=== PATIENT | male | born 1980 | race African-American/Black ===

== ENCOUNTER 2020-10-29 00:01 | Emergency (ER) | payer OTHER ==
[~2020-10-29] VITALS: Ht 170.2 cm; Wt 95.4 kg
[2020-10-29] MEDS ORDERED: MIRT-34 PO (00:10)
[2020-10-29] MEDS ORDERED: BUSP5TAB PO (00:10)
--- NOTE | 2020-10-29 00:16 | PHYS DOC ---
General Adult EDM: Chief Complaint: FEVER HPI: HPI: Patient is a 40 year old male who presents with here by EMS from [facility]. He is a 2 days of nasal congestion, lessened sense of smell, sore throat and chills. He states he has not been taking anything for his symptoms. 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 He has a history of smoking, anxiety, meth abuse. Review of Systems: Review of Systems: Constitutional: Denies fever. +chills. [] Eyes: Denies change in visual acuity. [] HENT: + nasal congestion or +sore throat, + lessened sense of smell. [] Respiratory: + cough or denies shortness of breath. [] Cardiovascular: Denies chest pain or edema. [] GI: Denies abdominal pain, nausea, vomiting, bloody stools or diarrhea. [] : Denies dysuria. [] Musculoskeletal: Denies back pain or joint pain. [] Integument: Denies rash. [] Neurologic: Denies headache, focal weakness or sensory changes. [] Endocrine: Denies polyuria or polydipsia. [] Lymphatic: Denies swollen glands. [] Psychiatric: Denies depression or anxiety. [] Heart Score: Risk Factors: Risk Factors: DM, Current or recent (<one month) smoker, HTN, HLP, family history of CAD, obesity. Risk Scores: Score 0 - 3: 2.5% MACE over next 6 weeks - Discharge Home Score 4 - 6: 20.3% MACE over next 6 weeks - Admit for Clinical Observation Score 7 - 10: 72.7% MACE over next 6 weeks - Early Invasive Strategies Physical Exam: PE: Constitutional: Well developed, well nourished, no acute distress, non-toxic ap pearance. [] HENT: Normocephalic, atraumatic, bilateral external ears normal, oropharynx moist, no oral exudates, nose normal. Bilateral tonsils 1+ swollen. No exudates seen. Nasal congestion. [] Eyes: PERRLA, EOMI, conjunctiva normal, no discharge. [] Neck: Normal range of motion, no tenderness, supple, no stridor. [] Cardiovascular:Heart rate regular rhythm, no murmur [] Lungs & Thorax: Bilateral breath sounds clear to auscultation [] Abdomen: Bowel sounds normal, soft, no tenderness, no masses, no pulsatile masses. [] Skin: Warm, dry, no erythema, no rash. [] Back: No tenderness, no CVA tenderness. [] Extremities: No tenderness, no cyanosis, no clubbing, ROM intact, no edema. [] Neurologic: Alert and oriented X 3, normal motor function, normal sensory function, no focal deficits noted. [] Psychologic: Affect normal, judgement normal, mood normal. [] EKG: EKG: [] Radiology/Procedures: Radiology/Procedures: [] Impression: [facility] [address] [place] [address] IMAGING REPORT Signed PATIENT: BERENICE FAUSTIN ACCOUNT: [id number] : 1980 LOCATION: ER AGE: 40 SEX: M EXAM STATUS: REG ER ORD. PHYSICIAN: STEFANO MCLEOD APRN REASON: COUGH PROCEDURE: PORTABLE CHEST 1V INDICATION: Reason: COUGH / Spl. Instructions: / History: COMPARISON: None. FINDINGS: Single view of chest obtained. No focal airspace consolidation. Cardiomediastinal contour unremarkable. No acute osseous abnormality. IMPRESSION: * No focal airspace consolidation or edema. Electronically signed by: David Ibrahim MD (10/29/2020 12:38 AM) [id number] DICTATED and SIGNED BY: DAVID IBRAHIM MD DATE: 10/29/20 [id number] 0 Course & Med Decision Making: Course & Med Decision Making Pertinent Labs and Imaging studies reviewed. (See chart for details) COVID-19 CRITERIA: The patient was evaluated during the global COVID-19 pandemic, and that diagnosis was suspected/considered upon their initial presentation. Their evaluation, treatment and testing was consistent with current guidelines for patients who present with complaints or symptoms that may be related to COVID-19. See HPI. Alert and oriented x4. Ambulatory with a steady gait. Speaks in full complete sentences. Skin pink warm and dry. Afebrile. Lungs are clear to auscultation all lobes. Tonsils are 1+ swollen and reddened but there is no exudates. Nasal congestion present. No sinus tenderness with palpation. [] Dragon Disclaimer: [place] Disclaimer: This electronic medical record was generated, in whole or in part, using a voice recognition dictation system. COVID-19 Patient Risks: Age 65 or older: No Sign of co-morbidity: Yes Exp to person + for COVID: No Exp to PUI: No Travel from affected area: No Lower respiratory symptoms: Yes Fever: No Other: Yes (lessened smell) PPE Use: Full PPE with N95 mask or PAPR: Yes Departure Departure Impression: Primary Impression: Sore throat Additional Impressions: Nasal congestion Smell, impaired Cough Disposition: 01 DC HOME SELF CARE/HOMELESS Condition: STABLE Patient Instructions: Cough, Adult, Sore Throat, [id number] Additional Instructions: Follow-up with your primary care provider. Take medication as prescribed and with food. Drink plenty of fluids. Take Tylenol or ibuprofen for any pain or fever. If you begin having severe shortness of breath or chest pain return to emergency room. You have been tested for or diagnosed with COVID-19. It is an infection caused by a new type of coronavirus. COVID-19 will cause cold-like or mild flu symptoms in most. It can cause more severe symptoms like problems breathing in some. There is no treatment for COVID-19. The body will clear the infection over time. Self-care will help to ease discomfort. Steps to Take: Self-Care Rest as needed. Healthy habits may help you feel better. Steps include: Choose healthy foods including fruits and vegetables. Drink water throughout the day. Get plenty of sleep each night. If you smoke, try to quit. It may ease breathing. Avoid alcohol. Keep Others Healthy The virus can spread to others. Droplets are released every time you sneeze or cough. The droplets can get into the mouth, nose, or eyes of people near you and lead to infection. To lower the chances of spreading COVID-19 to others: Stay at home until your doctor has said it is safe to leave. If you tested positive this will mean staying isolated until both of the following are true: At least 7 days have passed since the start of illness. You are free of fever for at least 72 hours without the use of medicine. During this time: - Avoid public areas, events, or transportation. Do not return to work or school until your doctor has said it is safe to do so. - Call ahead if you need to go to a medical center. Let them know you may have COVID-19. It will help them guide you where to go. They may also ask you to wear a facemask when you come to the office. - If you call for emergency medical services, let them know you may have COVID- 19. While at home: - Try to avoid close contact with others. Stay about 6 feet away. - If possible, spend most of your time in a separate room from others. - Use a face mask if you will be in close contact with others such as sharing a room or vehicle. - Have someone wipe down common surfaces in the home. Use household tankman every day on areas like doorknobs, counters, or sinks. - Cough or sneeze into a tissue. Throw the tissue away right after use. If a tissue is not available, cough or sneeze into your elbow. - Wash your hands often. Wash them after sneezing or coughing. Use soap and water and wash for at least 20 seconds. Alcohol based hand room cleaner can be used if soap and water is not available. - Do not prepare food for others. Avoid sharing personal items like forks, spoons, or toothbrushes. - Avoid close contact with pets while you are sick. There is no evidence of the virus passing to pets. This is a safety step until more is known about this virus. Isolation can be frustrating. Social interaction can help. Keep in touch with friends and family through phone and tech options. You can still interact with others in your home, just keep a safe distance of about 6 feet. Follow-up: Your doctors office will check in with you to see if there are any changes in your health. You may be asked to keep track of symptoms to share with them. They will also let you know when you are clear to be in public again. Problems to Look Out For: Contact your doctor if your recovery is not going as you expect. Get emergency care if you have problems such as: - Trouble breathing - Nonstop chest pain or pressure - Changes in awareness, confusion, or problems waking - Lips or face have bluish color - Worsening of symptoms If you think you have an emergency, call for emergency medical services right away. As taken from [facility] Cetirizine Hcl (ZYRTEC) 10 Mg Tablet 1 TAB PO DAILY, #14 TAB 2 Refills Prov: STEFANO MCLEOD APRN 10/29/20 Ibuprofen (IBUPROFEN) 600 Mg Tablet 600 MG PO PRN Q6HRS PRN for INFLAMMATION, #30 TAB Prov: STEFANO MCLEOD COFFEE WEIGHER 10/29/20 Azithromycin (AZITHROMYCIN TABLET) 250 Mg Tablet 1 PKG PO UD for 5 Days, #6 TAB 0 Refills 2 the first day followed by 1 for days 2-5 Prov: STEFANO MCLEOD APRN 10/29/20 Methylprednisolone (MEDROL) 4 Mg Tab.ds.pk 1 PKG PO UD, #1 PKG Prov: STEFANO MCLEOD COFFEE WEIGHER 10/29/20 Albuterol Sulfate (PROAIR HFA INHALER) 8.5 Gm Hfa.aer.ad 1 PUFF INH PRN Q6HRS PRN for SHORTNESS OF BREATH, #1 INHALER 0 Refills Prov: STEFANO MCLEOD APRN 10/29/20 STEFANO MCLEOD APRN Oct 29, 2020 00:16
[2020-10-29] MEDS ORDERED: DEXAMETHASONE 4 MG TABLET PO ONE (00:30)
[2020-10-29] MEDS ORDERED: CETIRIZINE HCL 10 MG TABLET. PO ONE (00:30)
--- NOTE | 2020-10-29 00:40 | RAD ---
INDICATION: Reason: COUGH / Spl. Instructions: / History: COMPARISON: None. FINDINGS: Single view of chest obtained. No focal airspace consolidation. Cardiomediastinal contour unremarkable. No acute osseous abnormality. IMPRESSION: * No focal airspace consolidation or edema. Electronically signed by: Wiley Ibrahim MD (10/29/2020 12:38 AM) [id number]
[2020-10-29] MEDS ORDERED: AZIT250T6 PO (00:47)
[2020-10-29] MEDS ORDERED: IBUP-1007 PO (00:47)
[2020-10-29] MEDS ORDERED: METH4TAB2 PO (00:47)
[2020-10-29] MEDS ORDERED: ALBU2.5V8 INH (00:47)
[2020-10-29] MEDS ORDERED: CETI10TA74 PO (00:47)
[2020-10-29 02:06] VITALS: BP 145/86
--- NOTE | 2020-10-30 09:47 | NUR ---
IP: Informed pt of negative COVID results. Pt verbalized understanding.
== END 2020-10-29 02:53 | disposition home or self-care (01) ==
LOC: ER 00:01
DX: Z20.828 Contact with and (suspected) exposure to other viral communicable diseases (principal); J02.9 Acute pharyngitis, unspecified; R09.81 Nasal congestion; R05 Cough; F41.9 Anxiety disorder, unspecified; Z87.891 Personal history of nicotine dependence
CPT/HCPCS: 71045; 87070; 87880; 99285; C9803; U0003

== ENCOUNTER 2021-07-06 13:51 | Emergency (ER) | payer OTHER ==
[~2021-07-06] VITALS: Ht 170.2 cm; Wt 90.9 kg
[~2021-07-06 13:51] MED LIST: ALBU2.5V8 INH; AZIT250T6 PO; BUSP5TAB PO; CETI10TA74 PO; IBUP-1007 PO; METH4TAB2 PO; MIRT-34 PO
[2021-07-06] MEDS ORDERED: IV NORMAL SALINE 1000ML BAG 1,000 ML IV ONE (14:15)
--- NOTE | 2021-07-06 14:20 | PHYS DOC ---
Past Medical History Past Medical History: Anxiety, Other Additional Past Medical Histor: "HERNIA",INSOMNIA,COVID-19 Past Surgical History: Other Additional Past Surgical Histo: L TESTICLE Smoking Status: Current Every Day Smoker Alcohol Use: None General Adult EDM: Chief Complaint: GROIN PAIN HPI: HPI: 40-year-old -[place] male past medical history anxiety, insomnia and seizure disorder, presents the [facility] from the [facility] with complaints of left inguinal pain worse with lifting weights and squats that started after working out today. Review of Systems: Review of Systems: Constitutional: Denies fever or chills. [] Eyes: Denies change in visual acuity. [] HENT: Denies nasal congestion or sore throat. [] Respiratory: Denies cough or shortness of breath. [] Cardiovascular: Denies chest pain or edema. [] GI: Denies nausea, vomiting, bloody stools or diarrhea. [] : Denies dysuria, hematuria or urethral discharge Musculoskeletal: Denies back pain or joint pain. [] Integument: Denies rash or diaphoresis Neurologic: Denies headache, focal weakness or sensory changes. [] Endocrine: Denies polyuria or polydipsia. [] Lymphatic: Denies swollen glands. [] Psychiatric: Denies depression or anxiety. [] Heart Score: C/O Chest Pain: No Risk Factors: Risk Factors: DM, Current or recent (<one month) smoker, HTN, HLP, family history of CAD, obesity. Risk Scores: Score 0 - 3: 2.5% MACE over next 6 weeks - Discharge Home Score 4 - 6: 20.3% MACE over next 6 weeks - Admit for Clinical Observation Score 7 - 10: 72.7% MACE over next 6 weeks - Early Invasive Strategies Current Medications: Current Medications Medications (Trade) Dose Ordered Sig/Yissel Start Time Stop Time Status Last Admin Dose Admin Sodium Chloride 1,000 ml @ 1,000 mls/hr 1X ONCE 07/06/21 14:15 07/06/21 15:14 UNV Allergies: Allergies: Allergies Coded Allergies Type Severity Reaction Last Updated Verified Penicillins Allergy Unknown UNKNOWN 07/06/21 Yes Physical Exam: PE: Constitutional: Well developed, well nourished, no acute distress, non-toxic appearance. HENT: Normocephalic, atraumatic, Eyes: EOMI, conjunctiva normal, no discharge. Neck: Normal range of motion, supple, Cardiovascular: S1/2 present, regular rhythm Lungs & Thorax: Speaking in full sentences, bilateral equal chest rise, no tachypnea or increased work of breathing Abdomen: soft, no tenderness, Skin: Warm, dry, no erythema, no rash. [] Back: No tenderness, no CVA tenderness. [] Extremities: No tenderness, no cyanosis, no lower extremity edema Neurologic: Alert and oriented X 3, normal motor function, normal sensory function, no focal deficits noted. [] Psychologic: Affect normal, judgement normal, mood normal. [] : Chaperoned by RN, circumcised, left inguinal region fullness/reduced with no significant discomfort, no testicular/penile tenderness, no rash or ulcers, no urethral discharge, no groove sign Current Patient Data: Vital Signs: Vital Signs Date Time Temp Pulse Resp B/P (MAP) Pulse Ox O2 Delivery O2 Flow Rate FiO2 07/06/21 13:51 98.3 86 16 124/79 (94) 95 Room Air 98.3 EKG: EKG: [] Radiology/Procedures: Radiology/Procedures: []IMAGING REPORT Signed PATIENT: BERENICE FAUSTIN ACCOUNT: [id number] : 1980 LOCATION: ER AGE: 40 SEX: M EXAM STATUS: REG ER ORD. PHYSICIAN: ROLLY WOOD DO REASON: left inguinal pain, suspect hernia PROCEDURE: CT ABD PELV W/ORAL&IV CONTRAST Examination: CT of the abdomen pelvis with IV contrast HISTORY: History of left inguinal pain COMPARISON: None available Technique: Axial CT images of the pelvis are performed with oral and IV contrast. Coronal and sagittal deformities are performed Exposure: One or more of the following individualized dose reduction techniques were utilized for this examination: 1. Automated exposure control 2. Adjustment of the mA and/or kV according to patient size 3. Use of iterative reconstruction technique FINDINGS: The bibasilar lungs are clear. No evidence of free air identified in the abdomen. The liver, spleen, adrenals grossly appears unremarkable. The catheter is mildly distended. The stomach is mildly distended. Small hiatal hernia is identified. The visualized pancreas grossly appears unremarkable. Small bowel is nondilated. Feces and gas in the colon. Urinary bladder is mildly distended. There is a small fat-containing left inguinal identified. Bilateral kidneys enhance symmetrically. Tiny cystic structures identified within bilateral kidneys with the largest measuring 1.4 cm the right kidney. No evidence of lytic bony destructive lesion. IMPRESSION: 1. Small fat-containing left inguinal hernia. 2. Small hiatal hernia. 3. Tiny cystic structures identified within bilateral kidneys with the largest measuring 1.4 cm the right kidney. Follow-up nonemergent ultrasound kidneys can be considered. Electronically signed by: Deven Neville MD (07/06/2021 4:14 PM) [id number] DICTATED and SIGNED BY: DEVEN NEVILLE MD DATE: 07/06/21 [id number] 0 Course & Med Decision Making: Course & Med Decision Making Pertinent Labs and Imaging studies reviewed. (See chart for details) Concern for reducible left inguinal hernia no medically stable male. Basic labs unremarkable. Urinalysis with no signs of infection. Will discharge home with strict ED return precautions were given for inability to reduce hernia, severe pain, nausea, vomiting or fever. Encouraged urgent outpatient follow-up with PMD and surgery for definitive management. Life-threatening processes were considered but are low suspicion at this time, given history, physical exam and ED workup. Pt was educated on all prescription medications and adverse effects. All patient's questions were answered and pt was stable at time of discharge. Life/limb-threatening differential includes but is not limited to, aortic dissection, aortic aneurysm, acute coronary syndrome, surgical abdomen (appendicitis, cholecystitis, ischemic bowel, strangulated hernia, etc), bowel obstruction or volvulus, bladder outlet obstruction, gastrointestinal bleeding, inflammatory bowel disease, peptic ulcer disease, ACS/CAD, sepsis, diverticular disease, ureterolithiasis, nephrolithiasis, ovarian or testicular torsion, ectopic , vaginal hemorrhage, or genitourinary infection. I have spoken with the patient and/or caregivers. I explained the patient's condition, diagnoses and treatment plan based on the information available to me at this time. I have answered the patient and/or caregiver's questions and addressed any concerns. The patient and/or caregivers have a good understanding of patient's diagnosis, condition and treatment plan as can be expected at this point. Vital signs have been stable. Patient's condition is stable and appropriate for discharge from the emergency department. Patient will pursue further outpatient evaluation with primary care physician or other designated or consulting physician as outlined in the discharge instructions. The patient and/or caregivers are agreeable to this plan of care and follow-up instructions have been explained in detail. The patient and/or caregivers have received these instructions in written form and have expressed an understanding of the discharge instructions. The patient and/or caregivers are aware that any significant change of condition or worsening of symptoms should prompt immediate return to this or the closest emergency department or call to [facility] Disclaimer: [place] Disclaimer: This electronic medical record was generated, in whole or in part, using a voice recognition dictation system. Departure Departure Impression: Primary Impression: Left inguinal hernia Disposition: HOME / SELF CARE / HOMELESS Condition: STABLE Referrals: NO PCP (PCP) Follow-up with your primary care physician in 24 to 48 hours OR FOLLOW UP WITH FAMILY MEDICINE: [address] [facility] [facility] [address] [place] [address] Patient Instructions: Hernia Additional Instructions: FOLLOW UP WITH SURGERY: FOR DEFINITIVE MANAGEMENT of left-sided fat-containing inguinal hernia [facility] General Surgery Address: [address] [facility] [facility] [address] [place] [address] EMERGENCY DEPARTMENT GENERAL DISCHARGE INSTRUCTIONS Thank you for coming to [facility] Emergency Department (ED) today and trusting us with you care. We trust that you had a positive experience in our Emergency Department. If you wish to speak to the department management, you may call the Director at [phone]. YOUR FOLLOW UP INSTRUCTIONS ARE FOLLOWS: 1. Do you have a private Doctor? If you do not have a private doctor, please ask for a resource list of physicians or clinics that may be able to assist you with follow up care. 2. The Emergency Physicain has interpreted your x-rays. The X-Ray specialist will also review them. If there is a change in the findings, you will be notified in 48 hours when at all possible. 3. A lab test or culture has been done, your results will be reviewed and you will be notified if you need a change in treatment. ADDITIONAL INSTRUCTIONS AND INFORMATION: 1. Your care today has been supervised by a physician who is specially trained in emergency care. Many problems require more than one evaluation for a complete diagnosis and treatment. We recommend that you schedule your follow up appointment as recommended to ensure complete treatment of you illness or injury. If you are unable to obtain follow up care and continue to have a problem, or if your condition worsens, we recommend that you return to the ED. 2. We are not able to safely determine your condition over the phone nor are we able to give sound medical advice over the phone. For these safety reasons, if you call for medical advice we will ask you to come to the ED for further evaluation. 3. If you have any questions regarding these discharge instructions please call the ED at [phone]. SAFETY INFORMATION: In the interest of safety, wellness, and injury prevention; we encourage you to wear your sealbelt, if you smoke; quite smoking, and we encourage family to use a protective helmet for bicycling and other sporting events that present an increased risk for head injury. IF YOUR SYMPTOMS WORSEN OR NEW SYMPTOMS DEVELOP, OR YOU HAVE CONCERNS ABOUT YOUR CONDITION; OR IF YOUR CONDITION WORSENS WHILE YOU ARE WAITING FOR YOUR FOLLOW UP APPOINTMENT; EITHER CONTACT YOUR PRIMARY CARE DOCTOR, THE PHYSICIAN WHOSE NAME AND NUMBER YOU WERE GIVEN, OR RETURN TO THE ED IMMEDIATELY. Scripts Naproxen (NAPROSYN) 500 Mg Tablet 1 TAB PO BID PRN for PAIN, #20 TAB Prov: ROLLY WOOD DO 07/06/21 ROLLY WOOD DO Jul 06, 2021 14:20
[2021-07-06 14:25] LABS: BASO % 1 % (0-3); EOS % 2 % (0-3); HEMATOCRIT 38.8 % (39.0-53.0); HEMOGLOBIN 13.7 g/dL (13.0-17.5); LYMPH # 1.5 x10^3/uL (1.0-4.8); LYMPH % 46 % (24-48); MEAN CORPUSCULAR HEMOGLOBIN 32 pg (25-35); MEAN CORPUSCULAR HGB CONC 35 g/dL (31-37); MEAN CORPUSCULAR VOLUME 90 fL (79-100); MONO # 0.3 x10^3/uL (0.0-1.1); MONO % 10 % (0-9); NEUT # 1.4 x10^3/uL (1.8-7.7); NEUT % 42 % (31-73); PLATELET COUNT 216 x10^3/uL (140-400); RED BLOOD COUNT 4.32 x10^6/uL (4.30-5.70); RED CELL DISTRIBUTION WIDTH 13.9 % (11.5-14.5); WHITE BLOOD COUNT 3.3 x10^3/uL (4.0-11.0)
[2021-07-06 14:26] LABS: BILIRUBIN,URINE NEGATIVE (NEG); CLARITY,URINE CLEAR; COLOR,URINE YELLOW; NITRITE,URINE NEGATIVE (NEG); PROTEIN,URINE NEGATIVE (NEG-TRACE); UROBILINOGEN,URINE 0.2 mg/dL (0.2 mg/dL)
[2021-07-06 14:40] LABS: CALCIUM 9.1 mg/dL (8.5-10.1); CREATININE 1.1 mg/dL (0.7-1.3); GFR 90.2; POTASSIUM 4.6 mmol/L (3.5-5.1)
[2021-07-06 14:45] LABS: ALBUMIN 3.9 g/dL (3.4-5.0); ALBUMIN/GLOBULIN RATIO 1.2 (1.0-1.7); TOTAL PROTEIN 7.1 g/dL (6.4-8.2)
[2021-07-06 14:51] LABS: BACTERIA,URINE 0 /HPF (0-FEW); RBC,URINE 0 /HPF (0-2); WBC,URINE 0 /HPF (0-4)
[2021-07-06] MEDS ORDERED: IOHEXOL 300 MG/ML 100ML VIAL. ONE (14:58)
[2021-07-06] MEDS ORDERED: IOHEXOL 240 MG/ML 50ML VIAL. PO ONE (15:00)
[2021-07-06] MEDS ORDERED: CONTRAST GIVEN. MC PRN (15:00)
[2021-07-06] MEDS ORDERED: IOHEXOL 300 MG/ML 100ML VIAL. IV ONE (15:00)
--- NOTE | 2021-07-06 16:17 | RAD ---
Examination: CT of the abdomen pelvis with IV contrast HISTORY: History of left inguinal pain COMPARISON: None available Technique: Axial CT images of the pelvis are performed with oral and IV contrast. Coronal and sagitta l deformities are performed Exposure: One or more of the following individualized dose reduction techniques were utilized for thi s examination: 1. Automated exposure control 2. Adjustment of the mA and/or kV according to patient size 3. Use of iterative reconstruction technique FINDINGS: The bibasilar lungs are clear. No evidence of free air identified in the abdomen. The liver, spleen, adrenals grossly appears unremarkable. The catheter is mildly distended. The stomach is mildly disten ded. Small hiatal hernia is identified. The visualized pancreas grossly appears unremarkable. Small bowel is nondilated. Feces and gas in the colon. Urinary bladder is mildly distended. There is a small fat-containing left inguinal identified. Bilateral kidneys enhance symmetrically. Tiny cystic structures identified within bilateral kidneys w ith the largest measuring 1.4 cm the right kidney. No evidence of lytic bony destructive lesion. IMPRESSION: 1. Small fat-containing left inguinal hernia. 2. Small hiatal hernia. 3. Tiny cystic structures identified within bilateral kidneys with the largest measuring 1.4 cm the right kidney. Follow-up nonemergent ultrasound kidneys can be considered. Electronically signed by: Deven Neville MD (07/06/2021 4:14 PM) [id number]
[2021-07-06] MEDS ORDERED: NAPR-683 PO (17:04)
[2021-07-06 17:27] VITALS: BP 148/87
== END 2021-07-06 18:13 | disposition home or self-care (01) ==
LOC: EEVIPCON 13:51 → ER 13:51
DX: K40.90 Unilateral inguinal hernia, without obstruction or gangrene, not specified as recurrent (principal); F17.200 Nicotine dependence, unspecified, uncomplicated
CPT/HCPCS: 36415; 74177; 80053; 81001; 85025; 96360; 99285; J7030; Q9966; Q9967

== ENCOUNTER 2021-07-21 13:40 | Emergency (ER) | payer OTHER ==
[~2021-07-21] VITALS: Ht 170.2 cm; Wt 95.0 kg
[~2021-07-21 13:40] MED LIST changes: +NAPR-683 PO
[2021-07-21] MEDS ORDERED: KETOROLAC 15 MG/ML VIAL. IVP ONE (14:30)
[2021-07-21] MEDS ORDERED: IOHEXOL 300 MG/ML 100ML VIAL. IV ONE (15:00)
[2021-07-21] MEDS ORDERED: CONTRAST GIVEN. MC PRN (15:00)
--- NOTE | 2021-07-21 15:19 | RAD ---
INDICATION: Reason: left inguinal hernia / Spl. Instructions: [id number] 75ML / History: . COMPARISON: July 06, 2021 TECHNIQUE: Axial CT images obtained through the pelvis with contrast. One or more of the following individualized dose reduction techniques were utilized for this examinat ion: 1. Automated exposure control; 2. Adjustment of the mA and/or kV according to patient size; 3 . Use of iterative reconstruction technique. FINDINGS: Small fat-containing umbilical hernia. Moderate left and small right fat-containing inguinal hernia. Suspected trace hydrocele. Urinary bladder is partially distended. Appendix is seen within the pelvis and does not appear inflamed but only partially seen. Small amount of subchondral sclerosis at the right femoral head. IMPRESSION: * Left greater than right fat-containing inguinal hernias. * Small amount of sclerosis at the right femoral head. Differential considerations would include a s mall focus of avascular necrosis or sclerosis associated with degenerative changes. Electronically signed by: Wiley Ibrahim MD (07/21/2021 3:17 PM) [id number]
--- NOTE | 2021-07-21 15:49 | PHYS DOC ---
Past Medical History Past Medical History: Anxiety, Other Additional Past Medical Histor: "HERNIA",INSOMNIA,COVID-19 Past Surgical History: Other Additional Past Surgical Histo: hernia repair Smoking Status: Current Every Day Smoker Alcohol Use: None General Adult EDM: Chief Complaint: GROIN PAIN HPI: HPI: Patient is a 40 year old male who presents from [facility] with left-sided groin pain. Patient states that he has had a left-sided inguinal hernia for the past 2-3 years. He was seen here "1 to 1-1/2 months ago" and the hernia was reduced. Patient was instructed to schedule surgical repair to return to the emergency department if the hernia comes back. The physician in the facility attempted to reduce the hernia without success. Patient denies other genitourinary symptoms including pelvic pain, testicular pain, penile pain, penile discharge, dysuria and hematuria. Patient has no other complaints at this time. Review of Systems: Review of Systems: ROS negative except as mentioned in HPI. Heart Score: C/O Chest Pain: No Current Medications: Current Medications Medications (Trade) Dose Ordered Sig/Yissel Start Time Stop Time Status Last Admin Dose Admin Info (CONTRAST GIVEN -- Rx MONITORING) 1 each PRN DAILY PRN 07/21/21 15:00 07/23/21 14:59 Iohexol (Omnipaque 300 Mg/ml) 75 ml 1X ONCE 07/21/21 15:00 07/21/21 15:01 07/21/21 14:59 75 ML Ketorolac Tromethamine (Toradol 15mg Vial) 15 mg 1X ONCE 07/21/21 14:30 07/21/21 14:31 07/21/21 14:30 15 MG Allergies: Allergies: Allergies Coded Allergies Type Severity Reaction Last Updated Verified Penicillins Allergy Intermediate UNKNOWN 07/21/21 Yes Physical Exam: PE: Constitutional: Well developed, well nourished, no acute distress, non-toxic appearance. Cardiovascular:Heart rate regular rhythm, no murmur. Lungs & Thorax: Bilateral breath sounds clear to auscultation. Abdomen: Bowel sounds normal, soft, no tenderness, no masses, no pulsatile masses. : Pubic hair with symmetrical appropriate growth pattern. Left-sided swelling and soft mass noted to the inguinal fold extending medially. Skin is without warmth, edema or induration. Testicles are symmetrical and without lesions. Penis without lesions or discharge. Skin: Warm, dry, no erythema, no rash. Extremities: No tenderness, no cyanosis, no clubbing, ROM intact, no edema. Neurologic: Alert and oriented X 3, normal motor function, normal sensory function, no focal deficits noted. Current Patient Data: Vital Signs: Vital Signs Date Time Temp Pulse Resp B/P (MAP) Pulse Ox O2 Delivery O2 Flow Rate FiO2 07/21/21 13:54 98.1 98 16 123/86 (98) 96 Room Air 98.1 Radiology/Procedures: Radiology/Procedures: PROCEDURE: CT PELVIS W/CONTRAST INDICATION: Reason: left inguinal hernia / Spl. Instructions: [id number] 75ML / History: . COMPARISON: July 06, 2021 TECHNIQUE: Axial CT images obtained through the pelvis with contrast. One or more of the following individualized dose reduction techniques were utilized for this examination: 1. Automated exposure control; 2. Adjustment of the mA and/or kV according to patient size; 3. Use of iterative reconstruction technique. FINDINGS: Small fat-containing umbilical hernia. Moderate left and small right fat-containing inguinal hernia. Suspected trace hydrocele. Urinary bladder is partially distended. Appendix is seen within the pelvis and does not appear inflamed but only partially seen. Small amount of subchondral sclerosis at the right femoral head. IMPRESSION: * Left greater than right fat-containing inguinal hernias. * Small amount of sclerosis at the right femoral head. Differential consi derations would include a small focus of avascular necrosis or sclerosis associated with degenerative changes. Electronically signed by: Wiley Ibrahim MD (07/21/2021 3:17 PM) [id number] Course & Med Decision Making: Course & Med Decision Making Pertinent Labs and Imaging studies reviewed. (See chart for details) CT shows fat containing hernia, which is consistent with his last scan on 07/06/21. Patient informed that there is no urgent need for surgical intervention, but that he will need to see general surgery for further treatment to prevent herniation of bowel. Dragon Disclaimer: Dragon Disclaimer: This electronic medical record was generated, in whole or in part, using a voice recognition dictation system. Departure Departure Impression: Primary Impression: Recurrent inguinal hernia of left side without obstruction or gangrene Disposition: HOME / SELF CARE / HOMELESS Condition: STABLE Referrals: NO PCP (PCP) CARTER,KAYKAY D MD Patient Instructions: Hernia, [id number], Inguinal Hernia, Adult Additional Instructions: Although your inguinal hernia is recurrent, it only contains fat, meaning surgical repair is not emergent or urgent at this time. Contact information was provided to you for a general surgeon, which you may contact at your convenience. Return to the emergency department if your pain worsens, you develop a fever or you show signs of obstruction, including cessation of bowel movements or abdominal pain. SUZI BOND Jul 21, 2021 15:49
[2021-07-21 16:06] VITALS: BP 124/70
== END 2021-07-21 16:07 | disposition home or self-care (01) ==
LOC: ER 13:40
DX: K40.90 Unilateral inguinal hernia, without obstruction or gangrene, not specified as recurrent (principal); F17.200 Nicotine dependence, unspecified, uncomplicated; Z98.890 Other specified postprocedural states; Z88.0 Allergy status to penicillin
CPT/HCPCS: 72193; 96374; 99285; J1885; Q9967

== ENCOUNTER 2021-08-01 14:21 | Emergency (ER) | payer OTHER ==
[~2021-08-01] VITALS: Ht 170.2 cm; Wt 99.0 kg
[2021-08-01 15:28] VITALS: BP 102/70
--- NOTE | 2021-08-01 16:00 | PHYS DOC ---
Past Medical History Past Medical History: Anxiety, Other Additional Past Medical Histor: "HERNIA",INSOMNIA,COVID-19 Past Surgical History: Other Additional Past Surgical Histo: Left inguinal hernia Smoking Status: Current Every Day Smoker Alcohol Use: None General Adult EDM: Chief Complaint: GROIN PAIN HPI: HPI: Patient is a 40 year old male who presents with has a chronic left sided inguinal hernia that has been causing him pain. He was just here on July 21 and had a left-sided inguinal hernia that contained fat. Patient states that since his visit he is having a harder time getting stool out and his stool is harder. He states it is more painful with having a bowel movement. He states that the detention facility would have to make a surgical appointment for him to be seen by a surgeon to get this fixed. None of this has been done. He denies nausea, vomiting, diarrhea, fever. Patient has history of Covid, smoking, left inguinal hernia, right inguinal hernia, umbilical hernia, hiatal hernia. Rating his pain an 8 out of 10 states is an aching and throbbing type pain. Does not radiate. Review of Systems: Review of Systems: Constitutional: Denies fever or chills. [] Eyes: Denies change in visual acuity. [] HENT: Denies nasal congestion or sore throat. [] Respiratory: Denies cough or shortness of breath. [] Cardiovascular: Denies chest pain or edema. [] GI: + Left lower abdominal pain, denies nausea, vomiting, bloody stools or diarrhea. + Harder stools [] : Denies dysuria. [] Musculoskeletal: Denies back pain or joint pain. [] Integument: Denies rash. [] Neurologic: Denies headache, focal weakness or sensory changes. [] Endocrine: Denies polyuria or polydipsia. [] Lymphatic: Denies swollen glands. [] Psychiatric: Denies depression or anxiety. [] Heart Score: C/O Chest Pain: No Current Medications: Current Medications Medications (Trade) Dose Ordered Sig/Yissel Start Time Stop Time Status Last Admin Dose Admin Sodium Chloride 1,000 ml @ 1,000 mls/hr Q1H 08/01/21 15:30 08/01/21 16:29 Allergies: Allergies: Allergies Coded Allergies Type Severity Reaction Last Updated Verified Penicillins Allergy Intermediate UNKNOWN 07/21/21 Yes Physical Exam: PE: Constitutional: Well developed, well nourished, no acute distress, non-toxic appearance. [] HENT: Normocephalic, atraumatic, bilateral external ears normal, oropharynx moist, no oral exudates, nose normal. [] Eyes: PERRLA, EOMI, conjunctiva normal, no discharge. [] Neck: Normal range of motion, no tenderness, supple, no stridor. [] Cardiovascular:Heart rate regular rhythm, no murmur [] Lungs & Thorax: Bilateral breath sounds clear to auscultation [] Abdomen: Bowel sounds normal, soft, left lower tenderness, left lower inguinal hernia masses, no pulsatile masses. [] Skin: Warm, dry, no erythema, no rash. [] Back: No tenderness, no CVA tenderness. [] Extremities: No tenderness, no cyanosis, no clubbing, ROM intact, no edema. [] Neurologic: Alert and oriented X 3, normal motor function, normal sensory function, no focal deficits noted. [] Psychologic: Affect normal, judgement normal, mood normal. [] Current Patient Data: Vital Signs: Vital Signs Date Time Temp Pulse Resp B/P (MAP) Pulse Ox O2 Delivery O2 Flow Rate FiO2 08/01/21 15:28 98.4 95 16 102/70 (81) 98 Room Air 98.4 EKG: EKG: [] Radiology/Procedures: Radiology/Procedures: [] Impression: [facility] [address] [place] [address] IMAGING REPORT Signed PATIENT: BERENICE FAUSTIN ACCOUNT: [id number] : 1980 LOCATION: ER AGE: 40 SEX: M EXAM STATUS: REG ER ORD. PHYSICIAN: STEFANO MCLEOD APRN REASON: abdominal pain. Hernia history PROCEDURE: CT ABD PELV W/ IV CONTRST ONLY CT OF THE ABDOMEN AND PELVIS WITH IV CONTRAST. History: Reason: abdominal pain. Hernia history Comparison:None. Procedure: Contiguous axial images of the abdomen and pelvis were performed after the administration of 75 cc of Omni 300 IV contrast. Oral contrast: No. Findings: There is fat-containing inguinal canal hernias moderate on the left and small on the right. The gallbladder appears normal. The appendix is normal. Liver: Unremarkable Spleen: Unremarkable Pancreas: Unremarkable Adrenal Glands: Unremarkable Kidneys: Small cysts bilaterally There is no mass or lymphadenopathy. There is no free air. There is no free fluid. The urinary bladder is collapsed. Impression: No acute findings. End Impression PQRS Compliance Statement: One or more of the following individualized dose reduction techniques were uti lized for this examination: 1. Automated exposure control 2. Adjustment of the mA and/or kV according to patient size 3. Use of iterative reconstruction technique Electronically signed by: Eddie King III, MD (08/01/2021 5:35 PM) [facility] DICTATED and SIGNED BY: EDDIE KING III, MD DATE: 08/01/21 [id number] Course & Med Decision Making: Course & Med Decision Making Pertinent Labs and Imaging studies reviewed. (See chart for details) See HPI. Alert and oriented x4. Ambulatory steady gait. Skin pink warm and dry. On July 21 the hernia contained fat. I did try to push the inguinal hernial mass back in but could not. It was painful for the patient. Speaks in full clear sentences. Afebrile. [] Dragon Disclaimer: Dragon Disclaimer: This electronic medical record was generated, in whole or in part, using a voice recognition dictation system. Departure Departure Impression: Primary Impression: Inguinal hernia Qualified Codes: K40.21 - Bilateral inguinal hernia, without obstruction or gangrene, recurrent Disposition: HOME / SELF CARE / HOMELESS Condition: STABLE Referrals: NO PCP (PCP) GABRIELLA CASTRO MD Patient Instructions: Inguinal Hernia, Adult Additional Instructions: Please call and make an appointment with the surgeon as soon as possible. Drink plenty of fluids. If you begin to vomit or have severe abdominal pain or fever you need to return emergency room. STEFANO MCLEOD APRN Aug 01, 2021 16:00
[2021-08-01] MEDS: IOHEXOL 300 MG/ML 100ML VIAL. IV ONE (16:15)
[2021-08-01] MEDS ORDERED: CONTRAST GIVEN. MC PRN (16:15)
[2021-08-01] MEDS: IV NORMAL SALINE 1000ML BAG 1,000 ML IV SCH (16:18)
[2021-08-01 16:30] LABS: BASO % 1 % (0-3); EOS # 0.1 x10^3/uL (0.0-0.7); EOS % 1 % (0-3); HEMATOCRIT 39.4 % (39.0-53.0); HEMOGLOBIN 13.6 g/dL (13.0-17.5); LYMPH # 1.7 x10^3/uL (1.0-4.8); LYMPH % 46 % (24-48); MEAN CORPUSCULAR HEMOGLOBIN 31 pg (25-35); MEAN CORPUSCULAR HGB CONC 35 g/dL (31-37); MEAN CORPUSCULAR VOLUME 90 fL (79-100); MONO # 0.3 x10^3/uL (0.0-1.1); MONO % 8 % (0-9); NEUT # 1.7 x10^3/uL (1.8-7.7); NEUT % 44 % (31-73); PLATELET COUNT 238 x10^3/uL (140-400); RED BLOOD COUNT 4.36 x10^6/uL (4.30-5.70); RED CELL DISTRIBUTION WIDTH 14.2 % (11.5-14.5); WHITE BLOOD COUNT 3.8 x10^3/uL (4.0-11.0)
[2021-08-01 16:37] LABS: CALCIUM 8.7 mg/dL (8.5-10.1); CREATININE 1.1 mg/dL (0.7-1.3); GFR 90.2; POTASSIUM 4.9 mmol/L (3.5-5.1)
[2021-08-01 16:44] LABS: ALBUMIN 3.8 g/dL (3.4-5.0); ALBUMIN/GLOBULIN RATIO 1.1 (1.0-1.7); TOTAL BILIRUBIN 1.2 mg/dL (0.2-1.0); TOTAL PROTEIN 7.4 g/dL (6.4-8.2)
[2021-08-01 17:16] LABS: BILIRUBIN,URINE NEGATIVE (NEG); CLARITY,URINE CLEAR; COLOR,URINE YELLOW; NITRITE,URINE NEGATIVE (NEG); PH,URINE 6.5 (<5.0-8.0); PROTEIN,URINE NEGATIVE (NEG-TRACE)
[2021-08-01 17:24] LABS: BACTERIA,URINE 0 /HPF (0-FEW); RBC,URINE 0 /HPF (0-2); WBC,URINE 0 /HPF (0-4)
--- NOTE | 2021-08-01 17:38 | RAD ---
CT OF THE ABDOMEN AND PELVIS WITH IV CONTRAST. History: Reason: abdominal pain. Hernia history Comparison:None. Procedure: Contiguous axial images of the abdomen and pelvis were performed after the administration of 75 cc o f Omni 300 IV contrast. Oral contrast: No. Findings: There is fat-containing inguinal canal hernias moderate on the left and small on the right. The gallb ladder appears normal. The appendix is normal. Liver: Unremarkable Spleen: Unremarkable Pancreas: Unremarkable Adrenal Glands: Unremarkable Kidneys: Small cysts bilaterally There is no mass or lymphadenopathy. There is no free air. There is no free fluid. The urinary bladder is collapsed. Impression: No acute findings. End Impression PQRS Compliance Statement: One or more of the following individualized dose reduction techniques were utilized for this examinat ion: 1. Automated exposure control 2. Adjustment of the mA and/or kV according to patient size 3. Use of iterative reconstruction technique Electronically signed by: Shaw Dsouza III, MD (08/01/2021 5:35 PM) [facility]
== END 2021-08-01 17:55 | disposition home or self-care (01) ==
LOC: EEVIPCON 14:21 → ER 14:21
DX: K40.21 Bilateral inguinal hernia, without obstruction or gangrene, recurrent (principal); F41.9 Anxiety disorder, unspecified; F17.200 Nicotine dependence, unspecified, uncomplicated; Z88.0 Allergy status to penicillin
CPT/HCPCS: 36415; 74177; 80053; 81001; 83690; 85025; 96360; 96361; 99285; J7030; Q9967